=== PATIENT | female | born 1955 | race Caucasian/White ===

== ENCOUNTER 2022-04-24 12:21 | Outpatient (REF) | payer MEDICARE, SELFPAY ==
[2022-04-24 12:33] VITALS: BP 161/92; PULSE 73; RESP 16; TEMP 36.3; O2SAT 98
[2022-04-24 12:35] VITALS: BMI 31.0
[2022-04-24 13:24] VITALS: BP 128/80; PULSE 72; RESP 16; O2SAT 97
== END 2022-04-24 12:22 | disposition home or self-care (01) ==
LOC: HO.MS 12:21
PROVIDERS: PCP Internal Medicine; Visit Provider Ophthalmology
PROC: (CPT 67850; principal; 2022-04-24 13:20)
DX: D22.112 Melanocytic nevi of right lower eyelid, including canthus (principal); I10 Essential (primary) hypertension; Z96.1 Presence of intraocular lens; Z87.891 Personal history of nicotine dependence; Z79.899 Other long term (current) drug therapy
CPT/HCPCS: 67850 ×2; 88305

== ENCOUNTER 2022-07-10 12:00 | Outpatient (REF) | payer MEDICARE, SELFPAY ==
[2022-07-10 12:04] VITALS: BMI 29.0
[2022-07-10 12:07] VITALS: BP 137/70; PULSE 79; RESP 16; TEMP 36.6; O2SAT 98
[2022-07-10 13:55] VITALS: BP 142/65; PULSE 70; RESP 16; O2SAT 96
== END 2022-07-10 12:01 | disposition home or self-care (01) ==
LOC: HO.MS 12:00
PROVIDERS: PCP Internal Medicine; Visit Provider Ophthalmology
PROC: (CPT 67840; principal; 2022-07-10 13:10)
DX: H02.822 Cysts of right lower eyelid (principal)
CPT/HCPCS: 67840; 88304

== ENCOUNTER 2023-02-15 14:20 | Outpatient (AMB) | payer MEDICARE, SELFPAY ==
--- NOTE | 2023-02-15 14:26 | A.OFFVIS_ITS ---
Intake Vital Signs 02/15/23 14:27 Height 5 ft 7 in BP 128/76 Blood Pressure Location Rt brachial Position Sitting Respiration 16 Pulse 90 Pulse Source Pulse Oximeter Pulse Oximetry (%) 97 Oxygen Delivery Method Room Air Intake Visit Reasons: Myopathy Parasthesia Bi ext?silvana-confirmed Intake Note: Pt presents to the office for new patient evaluation for loss of strength and se nsation of upper and lower extremities. She reports she was taken to [facility] about 3 weeks ago for weakness of arms and legs. She states she was worked up in the ED and it was determined this was not a heart attack or stroke. She denies nausea. This episode lasted 12 hours. Legal Billing Specialist Required: No Allergies codeine Adverse Reaction (Verified 02/15/23 14:27) Vomiting Medication List - Last Reconciled 02/15/23 by Ghazala Benoit MD ascorbic acid (vitamin C) mg PO atenolol 25 mg PO DAILY cholecalciferol (vitamin D3) 10 mcg PO DAILY escitalopram oxalate (Lexapro) 20 mg PO DAILY metformin 500 mg PO DAILY simvastatin 40 mg PO DAILY HPI HPI Comments History of Present Illness Details 67y/o female comes for evaluation of wea kness in the legs . It started about 6 mths she has difficulty climbing up the stairs . she also has intermittent parasthesias in her feet especially in her plantar surfaces. she has h/o back pain and worsens intermittently.No radiating pain. she also has neck pain and earl shoulder pain. she denies nay shooting pain from neck down.she reports weakness in her arms she denies urinary incontinence but has urgency . she has episodic numbness in her hands. 1 month ago - she had severe weakness of her legs and arms that lasted 5 hrs and went to [facility].CT brain - periventricular white matter changes Chest X ray was normal . she did not want to be admitted to the hospital. 10 years ago she had Breast Ca - had lum pectomy, 6 mths of chemo, 6 mths of radiation and she has some paretshesias in he rfeet at that time but resolved completely. [facility] Medical History (Updated 02/15/23 @ 15:29 by Ghazala Benoit MD) Weakness Numbness and tingling Depression Anxiety Prediabetes Shoulder pain Neck pain Back pain GERD (gastroesophageal reflux disease) Breast cancer Hypertension Hypercholesteremia Surgical History (Updated 02/15/23 @ 14:46 by Ashley Diggs CMA) H/O lumpectomy H/O cervical discectomy Family History (Updated 02/15/23 @ 14:49 by Ashley Diggs CMA) Mother No problems noted. Father No problems noted. Sister Epilepsy Diabetes type 1 with atherosclerosis of arteries of extremities Social History (Updated 02/15/23 @ 14:50 by Ashley Diggs CMA) Household Members: Spouse Housing: [facility] Alcohol intake: current Patient Tobacco Use Status: Current everyday Tobacco user Years Smoked: 50 years, 3 cig per day Review of Systems Const Reports weakness and Reports weight gain Eyes Reports blurry vision ENT Reports neck pain Musc Reports back pain, Reports arthralgias, Reports neck pain and Reports numbness Neuro Reports numbness and Reports weakness Psych Reports anxiety and Reports depression Physical Exam Vital Signs: Last Vital Signs Pulse 90 02/15/23 14:27 Resp 16 02/15/23 14:27 BP 128/76 02/15/23 14:27 Pulse Ox 97 02/15/23 14:27 Oxygen Delivery Method Room Air 02/15/23 14:27 Const General: cooperative, comfortable and anxious Nutritional Appearance: obese Orientation/consciousness: patient oriented x3 Eyes Pupils: Equal, round and reactive pupils present Neuro General: patient oriented x3, gait normal, moves all extremities and no focal motor deficits Cranial nerves: Yes Facial sensation intact/muscles of mastication intact, Yes Equal, round and reactive pupils present, Yes Bilaterally intact EOM present, Yes Nystagmus not present, Yes Normal facial strength present, Yes Midline tongue present, Yes Symmetric palate elevation present and Yes Ability to bilaterally elevate shoulders present Cognition (Neuro): normal cognition Gait exam (Neuro): Antalgic gait present Motor exam (neuro): 5/5 motor strength present throughout and Normal motor muscle tone present throughout Deep tendon reflexes (DTR's): Right triceps reflex intensity grade: 1+, Left triceps reflex intensity grade: 1+, Rt Biceps (C5, C6): 1+, Left biceps reflex intensity grade: 1+, Right brachioradialis reflex intensity grade: 1+, Left brachioradialis reflex intensity grade: 1+, Right patellar reflex intensity grade: 1+ and Left patellar reflex intensity grade: 1+ Coordination: [id number] test normal Psych Affect: Anxious affect present Assessment & Plan Assessment & Plan (1) Weakness: Comment: ? musculoskeletal, deconditioning Code(s): R53.1 - Weakness (2) Numbness and tingling: Code(s): R20.0 - Anesthesia of skin; R20.2 - Paresthesia of skin (3) Anxiety: Comment: poorly controlled Code(s): F41.9 - Anxiety disorder, unspecified Plan I will evaluate her with EMG NCS LE , check her Vit B 12 Vit D TSH levels Refer to PT for strengthening SUggested stabilization of mood- psyhcology or psychiatry evaluation Orders: Orders Erythrocyte Sedimentation Rate Today R20.0 - Anesthesia of skin, R20.2 - Paresthesia of skin, R53.1 - Weakness NE electromyogram (EMG) Today R20.0 - Anesthesia of skin, R20.2 - Paresthesia of skin PT Evaluation and Treatment Today R53.1 - Weakness TSH reflex Free T4 Today R20.0 - Anesthesia of skin, R20.2 - Paresthesia of skin, R53.1 - Weakness Vitamin B12 and Folate Today R20.0 - Anesthesia of skin, R20.2 - Paresthesia of skin, R53.1 - Weakness Vitamin D 25-OH (D2 and D3) Today R20.0 - Anesthesia of skin, R20.2 - Paresthesia of skin, R53.1 - Weakness Medications: New aspirin 81 mg PO DAILY Coding Level of Care Code New Pt Level 4 (32139) Diagnoses Weakness R53.1 Numbness and tingling R20.0; R20.2 Anxiety F41.9
[2023-02-15 14:27] VITALS: BP 128/76; PULSE 90; RESP 16; O2SAT 97
== END 2023-02-15 15:23 | disposition home or self-care (01) ==
PROVIDERS: PCP Internal Medicine; Visit Provider Psychiatry & Neurology Neurology
DX: R53.1 Weakness (principal); R20.0 Anesthesia of skin; R20.2 Paresthesia of skin; F41.9 Anxiety disorder, unspecified
CPT/HCPCS: 99204

== ENCOUNTER → 2023-02-15 14:20 | Outpatient (BNVA) | payer MEDICARE, SELFPAY | PROVIDERS: PCP Internal Medicine; Visit Provider Psychiatry & Neurology Neurology | DX: R53.1 Weakness (principal); R20.0 Anesthesia of skin; R20.2 Paresthesia of skin; F41.9 Anxiety disorder, unspecified | CPT/HCPCS: 99202 ==